=== PATIENT | female | born 1960 | race African-American/Black ===

== ENCOUNTER → 2016-05-29 | Outpatient (CLI) | payer OTHER ==
--- NOTE | ~2016-05-29 | CR63 ---
[facility] A Service of [facility] RADIOLOGY TEXT RESULTS PATIENT: VENESSA LEÓN LOCATION: C[facility] : 56 UNIT #: [id number] AGE: [address]: CHELSEY HAHN SEX: F ORDER DR: [id number] [facility] [address], [place] [address] [id number] MR#: [id number] Acc #: [id number] NAME: VENESSA LEÓN : 1960 SEX: F STUDY DATE/TIME: 05/29/2016 11:00 UNIT: [facility] ROOM: STUDY DESCRIPTION: CR Chest 2 View Attending Physician: Chelsey Hahn Aprn Referring Physician: Chelsey Hahn Aprn Ordering Physician: Chelsey Hahn Aprn Primary Care Physician: Chelsey Hahn Aprn MEDICAL IMAGING REPORT This report is preliminary unless electronic signature is present EXAM 2 views of the chest COMPARISON None INDICATION 56-year-old female with dyspnea, cough, and chest pain for 2 days. FINDINGS Cardiomediastinal silhouette is within normal limits. There are minimal band-like opacities in the left lung base favoring atelectasis or scarring. There is a calcified granuloma in the right upper lobe. No evidence of pneumothorax, pleural effusion, or acute airspace disease. Cardiomediastinal silhouette is normal. IMPRESSION No acute radiographic abnormality of the chest. There is minimal scarring versus atelectasis in the left lung base. Normal heart size. Dictated by... Jacobo Joaquin M.D. THIS IS AN ELECTRONICALLY VERIFIED REPORT Jacobo Joaquin M.D. at 05/29/2016 5:30 PM SAMINA/yaneth TD: 05/29/2016 12:08 JOB #: [id number] MEDICAL IMAGING REPORT [facility] A Service [facility] RADIOLOGY TEXT RESULTS PATIENT: VENESSA LEÓN LOCATION: [facility] : 56 UNIT #: [id number] AGE: [address]: CHELSEY HAHN SEX: F ORDER DR: Page 1 of 1 COPY
== END | disposition home or self-care (01) ==
LOC: CRAD 10:45
DX: R05 Cough (principal); J98.4 Other disorders of lung
CPT/HCPCS: 71020

== ENCOUNTER 2016-08-29 00:18 | Emergency (ER) | payer OTHER ==
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
== END 2016-08-29 03:22 | disposition home or self-care (01) ==
LOC: CED 00:18
DX: S90.121A Contusion of right lesser toe(s) without damage to nail, initial encounter (principal); E11.9 Type 2 diabetes mellitus without complications; F17.210 Nicotine dependence, cigarettes, uncomplicated; R56.9 Unspecified convulsions; Z88.0 Allergy status to penicillin; W20.8XXA Other cause of strike by thrown, projected or falling object, initial encounter; Y92.69 Other specified industrial and construction area as the place of occurrence of the external cause
CPT/HCPCS: 73630; 99283